=== PATIENT | female | born 1990 | race Caucasian/White ===

== ENCOUNTER → 2017-02-21 | Outpatient (CLI) | payer OTHER ==
[2017-02-21 13:47] LABS: FOLLICLE STIMULATING HORMONE 8.3 mIU/mL; LUTEINIZING HORMONE 9.4 mIU/mL
[2017-02-21 13:51] LABS: ALBUMIN 4.6 GM/DL (3.2-5.2); ALBUMIN/GLOBULIN RATIO 1.28 (1.00-1.93); ALKALINE PHOSPHATASE 55 U/L (45-117); ALT/SGPT 25 U/L (12-78); ANION GAP 9 MEQ/L (8-16); AST/SGOT 8 U/L (7-37); BILIRUBIN,TOTAL 0.7 MG/DL (0.2-1.0); BLOOD UREA NITROGEN 10 MG/DL (7-18); CALCIUM LEVEL 9.9 MG/DL (8.5-10.1); CARBON DIOXIDE LEVEL 29 MEQ/L (21-32); CHLORIDE LEVEL 104 MEQ/L (98-107); CREATININE FOR GFR 0.65 MG/DL (0.55-1.02); GLOMERULAR FILTRATION RATE > 60.0 (>60); GLUCOSE, FASTING 92 MG/DL (70-105); POTASSIUM SERUM 4.5 MEQ/L (3.5-5.1); SODIUM LEVEL 142 MEQ/L (136-145); TOTAL PROTEIN 8.2 GM/DL (6.4-8.2)
== END ==
LOC: M SMT 11:48
PROVIDERS: ATTEND Physician Assistant Medical
DX: E28.2 Polycystic ovarian syndrome (principal); Z13.1 Encounter for screening for diabetes mellitus

== ENCOUNTER → 2017-08-02 | Outpatient (CLI) | payer OTHER ==
[2017-08-02 18:24] LABS: BASO % 0.2 % (0.0-1.0); EOS # 0.1 10^3/uL (0.0-0.50); EOS % 0.6 % (0.0-3.0); HEMATOCRIT 37.5 % (36.0-47.0); HEMOGLOBIN 13.3 g/dl (12.0-15.5); IMMATURE GRANULOCYTE % 0.6 % (0-3.0); LYMPH # 1.8 10^3/uL (1.5-6.5); LYMPH % 19.7 % (24.0-44.0); MEAN CORPUSCULAR HGB CONC 35.5 g/dl (32.0-36.5); MEAN CORPUSCULAR VOLUME 95.9 fl (80.0-96.0); MONO # 0.9 10^3/uL (0.0-0.8); MONO % 9.9 % (0.0-5.0); NEUTROPHILS # 6.1 10^3/uL (1.8-7.7); PLATELET COUNT, AUTOMATED 260 10^3/uL (150-450); RED BLOOD COUNT 3.91 10^6/uL (4.00-5.40); RED CELL DISTRIBUTION WIDTH 11.6 % (11.5-14.5); WHITE BLOOD COUNT 8.9 10^3/uL (4.0-10.0)
[2017-08-03 00:20] LABS: CHLAMYDIA DNA AMPLIFICATION NEGATIVE (NEGATIVE); GC DNA AMPLIFICATION NEGATIVE (NEGATIVE)
[2017-08-03 11:01] LABS: HBsAg Prenatal NEGATIVE (NEGATIVE)
[2017-08-03 11:22] LABS: HEPATITIS C VIRUS ABY INDEX < 0.0 INDEX (<0.8)
[2017-08-03 11:23] LABS: HIV 1&2 SCREEN CENTAUR NEGATIVE (NEGATIVE)
[2017-08-03 12:26] LABS: RUBELLA IgG QUALITATIVE IMMUNE (IMMUNE)
== END ==
LOC: M SMT 14:15
DX: Z34.90 Encounter for supervision of normal pregnancy, unspecified, unspecified trimester (principal)
CPT/HCPCS: 86762

== ENCOUNTER 2017-08-13 20:15 | Emergency (ER) | payer OTHER ==
[2017-08-14] MEDS: ONDANSETRON 4MG/2ML VIAL (J2405) IV (00:30)
[2017-08-14] MEDS: NS 1,000 ML IV (00:31)
[2017-08-14] MEDS: ACETAMINOPHEN TAB 650MG DOSE (2X325MG) PO (00:32)
[2017-08-14 01:18] LABS: BASO % 0.2 % (0.0-1.0); EOS % 0.2 % (0.0-3.0); HEMATOCRIT 29.4 % (36.0-47.0); HEMOGLOBIN 10.6 g/dl (12.0-15.5); IMMATURE GRANULOCYTE % 0.5 % (0-3.0); LYMPH # 0.5 10^3/uL (1.5-6.5); LYMPH % 8.4 % (24.0-44.0); MEAN CORPUSCULAR HEMOGLOBIN 34.4 pg (27.0-33.0); MEAN CORPUSCULAR HGB CONC 36.1 g/dl (32.0-36.5); MEAN CORPUSCULAR VOLUME 95.5 fl (80.0-96.0); MONO # 0.9 10^3/uL (0.0-0.8); MONO % 14.4 % (0.0-5.0); NEUTROPHILS # 4.8 10^3/uL (1.8-7.7); NEUTROPHILS % 76.3 % (36.0-66.0); PLATELET COUNT, AUTOMATED 134 10^3/uL (150-450); RED BLOOD COUNT 3.08 10^6/uL (4.00-5.40); RED CELL DISTRIBUTION WIDTH 11.7 % (11.5-14.5); WHITE BLOOD COUNT 6.3 10^3/uL (4.0-10.0)
[2017-08-14 01:43] LABS: ANION GAP 9 MEQ/L (8-16); BLOOD UREA NITROGEN 4 MG/DL (7-18); CALCIUM LEVEL 7.6 MG/DL (8.5-10.1); CARBON DIOXIDE LEVEL 21 MEQ/L (21-32); CHLORIDE LEVEL 108 MEQ/L (98-107); CREATININE FOR GFR 0.48 MG/DL (0.55-1.30); GLOMERULAR FILTRATION RATE > 60.0 (>60); GLUCOSE, FASTING 84 MG/DL (70-100); POTASSIUM SERUM 3.4 MEQ/L (3.5-5.1); SODIUM LEVEL 138 MEQ/L (136-145)
[2017-08-14 02:16] LABS: KETONE, URINE AUTO RFX 2+ mg/dL (NEGATIVE); MUCUS, URINE RFX SMALL (NEGATIVE); NITRITE, URINE AUTO RFX NEGATIVE (NEGATIVE); RBC, URINE AUTO RFX 3 /HPF (0-3); SPECIFIC GRAVITY UR AUTO RFX 1.004 (1.002-1.035); SQUAM EPITHELIAL CELL UR AURFX 2 /HPF (0-6); WBC, URINE AUTO RFX 2 /HPF (0-3)
[2017-08-14 02:17] LABS: LEUKOCYTE ESTERASE UR AUTO RFX 2+ (NEGATIVE)
== END 2017-08-14 02:26 | disposition home or self-care (01) ==
LOC: M ED 20:15
DX: O99.511 Diseases of the respiratory system complicating pregnancy, first trimester (principal); Z3A.11 11 weeks gestation of pregnancy; Z79.899 Other long term (current) drug therapy
CPT/HCPCS: J2405

== ENCOUNTER → 2017-10-04 | Outpatient (CLI) | payer OTHER | LOC: M RAD 17:37 | DX: Z34.82 Encounter for supervision of other normal pregnancy, second trimester (principal); Z36.89 Encounter for other specified antenatal screening; Z3A.18 18 weeks gestation of pregnancy | CPT/HCPCS: 76811 ==

== ENCOUNTER → 2017-10-15 | Outpatient (CLI) | payer OTHER | LOC: M SMT 15:10 | DX: O28.5 Abnormal chromosomal and genetic finding on antenatal screening of mother (principal) | CPT/HCPCS: 36415 ==

== ENCOUNTER → 2017-11-05 | Outpatient (CLI) | payer OTHER | LOC: M RAD 13:19 | DX: Z34.82 Encounter for supervision of other normal pregnancy, second trimester (principal); Z36.89 Encounter for other specified antenatal screening; Z3A.22 22 weeks gestation of pregnancy | CPT/HCPCS: 76816 ==

== ENCOUNTER → 2017-12-11 | Outpatient (CLI) | payer OTHER ==
[2017-12-11 19:19] LABS: BASO % 0.4 % (0.0-1.0); EOS % 0.4 % (0.0-3.0); HEMATOCRIT 37.9 % (36.0-47.0); HEMOGLOBIN 13.2 g/dl (12.0-15.5); IMMATURE GRANULOCYTE % 2.1 % (0-3.0); LYMPH # 1.3 10^3/uL (1.5-6.5); LYMPH % 13.6 % (24.0-44.0); MEAN CORPUSCULAR HEMOGLOBIN 35.6 pg (27.0-33.0); MEAN CORPUSCULAR HGB CONC 34.8 g/dl (32.0-36.5); MEAN CORPUSCULAR VOLUME 102.2 fl (80.0-96.0); MONO # 0.8 10^3/uL (0.0-0.8); MONO % 8.3 % (0.0-5.0); NEUTROPHILS # 7.2 10^3/uL (1.8-7.7); NEUTROPHILS % 75.2 % (36.0-66.0); PLATELET COUNT, AUTOMATED 206 10^3/uL (150-450); RED BLOOD COUNT 3.71 10^6/uL (4.00-5.40); RED CELL DISTRIBUTION WIDTH 12.8 % (11.5-14.5); WHITE BLOOD COUNT 9.6 10^3/uL (4.0-10.0)
[2017-12-11 19:55] LABS: GLUCOSE CHALLENGE TEST 1 HOUR 127 MG/DL (LESS THAN 140)
== END ==
LOC: M SMT 13:42
DX: Z34.82 Encounter for supervision of other normal pregnancy, second trimester (principal); Z36.89 Encounter for other specified antenatal screening
CPT/HCPCS: 82950

== ENCOUNTER → 2018-02-05 | Outpatient (REF) | payer OTHER | LOC: M LAB REF 17:27 | DX: Z36.89 Encounter for other specified antenatal screening (principal) | CPT/HCPCS: 87186 ==

== ENCOUNTER 2018-03-04 02:03 | Inpatient (IN) | payer OTHER ==
[~2018-03-04] VITALS: Ht 167.6 cm; Wt 77.3 kg
[2018-03-04] VITALS (40 sets, daily range): BP systolic 107–156; BP diastolic 56–93
[~2018-03-04 02:03] MED LIST: PRENTAB7 PO; PROG200C PO; ZITHTAB PO
[2018-03-04] MEDS ORDERED: LACTATED RINGER'S 1000 ML IV STA (03:13)
[2018-03-04] MEDS ORDERED: LR 1,000 ML IV SCH ×2 (03:13→14:18)
[2018-03-04] MEDS ORDERED: PENICILLIN G POTASSIUM IV 5 MU in D5W MINI-BAG PLUS 100 ML IV STA (03:13)
[2018-03-04] MEDS ORDERED: PENICILLIN G POTASSIUM 5 MU VIAL As Ordered ONE (03:13)
[2018-03-04 03:35] LABS: HEMATOCRIT 37.2 % (36.0-47.0); MEAN CORPUSCULAR HEMOGLOBIN 34.9 pg (27.0-33.0); MEAN CORPUSCULAR HGB CONC 34.9 g/dl (32.0-36.5); PLATELET COUNT, AUTOMATED 170 10^3/uL (150-450); RED BLOOD COUNT 3.72 10^6/uL (4.00-5.40); WHITE BLOOD COUNT 11.4 10^3/uL (4.0-10.0)
--- NOTE | 2018-03-04 03:46 | HPE ---
DATE OF ADMISSION: 03/04/2018 A 27-year-old G2 (), para (P) 0-0-1-0 female at 39-6/7 weeks gestation by last menstrual period (LMP) consistent with a nine week ultrasound, with estimated date of confinement (EDC) 03/05/2018 presents with regular contractions every 3 to 4 minutes for the last several hours. The contractions have increased in intensity. She denies vaginal bleeding. COURSE: The patient initiated care at nine weeks gestation on 08/02/2017. Her course was unremarkable. PAST MEDICAL HISTORY: None. PAST SURGICAL HISTORY: None. ALLERGIES: None. SOCIAL HISTORY: The patient is . She denies cigarettes, alcohol or drug use. She lives in [place]. FAMILY HISTORY: Noncontributory. PHYSICAL EXAMINATION: VITAL SIGNS: Blood pressure 120/74, pulse 84. She appears uncomfortable. HEAD AND NECK: Exam normal. LUNGS: Clear. HEART: Regular rate and rhythm. ABDOMEN: Nontender and gravid. heart tones are category 1. STERILE VAGINAL EXAM: 3 cm, 75% effaced, -2 station, vertex. EXTREMITIES: Nontender. LABORATORY DATA: Blood type is B positive, Rubella immune, RPR nonreactive. Hepatitis B and C negative. Group B Streptococcus (GBS) positive on 01/2018. ASSESSMENT: A 27-year-old (G) 2, para (P) 0-0-1-0 female at 39-6/7 weeks gestation presents in labor. PLAN: The patient is admitted on 03/04/2018.
[2018-03-04] MEDS: PENICILLIN G POTASSIUM IV 2.5 MU in APPROPRIATE DILUENT 1 EA IV SCH ×4 (07:30→19:45)
[2018-03-04] MEDS ORDERED: LACTATED RINGER'S 1000 ML IV ONE (14:30)
[2018-03-04] MEDS ORDERED: OXYTOCIN DRIP 30 UNITS in APPROPRIATE DILUENT 1 EA IV SCH (14:30)
[2018-03-04] MEDS ORDERED: EPIDURAL/PCA KEYS XX PRN ×2 (15:15→16:15)
[2018-03-04] MEDS ORDERED: EPIDURAL COMMENT XX SCH ×2 (15:15→16:15)
[2018-03-04] MEDS ORDERED: FENTANYL/ROPIVACAINE/NACL BAG 100 ML EPIDURAL SCH ×2 (15:15→16:15)
[2018-03-04] MEDS ORDERED: REFRIGERATOR IV KEYS XX PRN ×2 (15:15→16:15)
[2018-03-04] MEDS ORDERED: LACTATED RINGER'S 1000 ML IV PRN (16:15)
[2018-03-04] MEDS ORDERED: diphenhydrAMINE INJ 50MG/ML VIAL (J1200) IV PRN (16:15)
[2018-03-04] MEDS ORDERED: NALOXONE INJ 0.4 MG/1 ML VIAL (J2310) IV PRN (16:15)
[2018-03-04] MEDS ORDERED: ePHEDrine SULFATE 25 MG/5 ML(5MG/ML) SYRINGE IV PRN (16:15)
[2018-03-04] MEDS ORDERED: ONDANSETRON 4MG/2ML VIAL (J2405) IV PRN (16:15)
[2018-03-04] MEDS ORDERED: METHYLERGONOVINE MALEATE 0.2 MG TAB PO PRN (22:00)
[2018-03-04] MEDS ORDERED: RHOGAM 300 MCG (1500 IU) INJ (J2790) IM SCH (22:00)
[2018-03-04] MEDS ORDERED: CARBOPROST TROMETHAMINE 250 MCG/ML AMP IM ONE (22:00)
[2018-03-04] MEDS ORDERED: DIBUCAINE 1% OINTMENT 30GM TOP PRN (22:00)
[2018-03-04] MEDS ORDERED: MEASLES,MUMPS,RUBELLA VACCINE INJ (MMR-II) (90707) SC SCH (22:00)
[2018-03-04] MEDS ORDERED: ANUSOL HC CREAM 30GM TOP PRN (22:00)
[2018-03-04] MEDS ORDERED: OXYTOCIN INJ 10 UNITS/ML VIAL (J2590) IM ONE (22:00)
[2018-03-04] MEDS ORDERED: ACETAMINOPHEN 500 MG TAB PO PRN (22:00)
[2018-03-04] MEDS ORDERED: DOCUSATE SODIUM 100 MG CAP PO PRN (22:00)
[2018-03-04] MEDS ORDERED: METHYLERGONOVINE MALEATE 0.2 MG/ML VIAL (J2210) IM ONE (23:00)
--- NOTE | 2018-03-05 06:02 | IPNPDOC ---
Text Note Date of Service The patient was seen on 03/05/18. NOTE Day 1 Status post spontaneous vaginal delivery Subjective Pain well controlled. Lochia decreasing. Voiding spontaneously. Tolerating a regular diet. Ambulating without any assistance. Denies any subjective fever/chills/nausea/headache/visual changes/shortness of breath/chest pain. Breast feeding. Objective Vitals: Normotensive, normal heart rate, afebrile, adequate urine output. Heart: regular, rate, and rhythm. no murmurs/gallops/rubs Lungs: clear to auscultation bilaterally, no wheezes/crackles/rales/ronchi Abd: soft, nontender, nondistended, uterine fundus is 2 cm below umbilicus and firm. Ext: no significant edema, nontender, negative Vianey's bilaterally. Assessment/Plan: day 1. Recovering well. Hemodynamically stable, afebrile, pain control adequate. -Routine care -Discharge to home tomorrow -Routine infectious, fever, pain, and bleeding precautions reviewed VS,Fishbone, I+O VS, Fishbone, I+O Vital Signs Date Time Temp Pulse Resp B/P (MAP) Pulse Ox O2 Delivery O2 Flow Rate FiO2 03/04/18 23:48 99.6 95 18 133/67 (89) I&O- Last 24 Hours up to 6 AM 03/05/18 06:00 Intake Total 2482 ml Output Total 1700 ml Balance 782 ml GME ATTESTATION GME ATTESTATION My faculty preceptor for this patient encounter was physically present during the encounter and was fully available. All aspects of the patient interview, examination, medical decision making process, and medical care plan development were reviewed and approved by the faculty preceptor. The faculty preceptor is aware and concurs with the plan as stated in the body of this note and will attest to such by his/her cosignature. ELAINA DUNCAN DO Mar 05, 2018 06:02
[2018-03-05 06:22] VITALS: BP 107/55
[2018-03-05] MEDS: PRENATAL VITAMINS CHEWABLE TABLET PO SCH (10:19)
[2018-03-05] MEDS: IBUPROFEN 800 MG TAB PO PRN ×2 (10:20→18:19)
[2018-03-05 18:00] VITALS: BP 122/73
[2018-03-06] MEDS: IBUPROFEN 800 MG TAB PO PRN (03:12)
--- NOTE | 2018-03-06 05:23 | IPNPDOC ---
Text Note Date of Service The patient was seen on 03/06/18. NOTE Day 2 Status post spontaneous vaginal delivery Subjective Pain well controlled. Lochia decreasing. Voiding spontaneously. Tolerating a regular diet. Ambulating without any assistance. Denies any subjective fever/chills/nausea/headache/visual changes/shortness of breath/chest pain. Breast feeding. Objective Vitals: Normotensive, normal heart rate, afebrile, adequate urine output. Heart: regular, rate, and rhythm. no murmurs/gallops/rubs Lungs: clear to auscultation bilaterally, no wheezes/crackles/rales/ronchi Abd: soft, nontender, nondistended, uterine fundus is 2 cm below umbilicus and firm. Ext: no significant edema, nontender, negative Vianey's bilaterally. Assessment/Plan: day 2. Recovering well. Hemodynamically stable, afebrile, pain control adequate. -Routine care -Discharge to home today -Routine infectious, fever, pain, and bleeding precautions reviewed GME ATTESTATION My faculty preceptor for this patient encounter was physically present during the encounter and was fully available. All aspects of the patient interview, ex amination, medical decision making process, and medical care plan development were reviewed and approved by the faculty preceptor. The faculty preceptor is aware and concurs with the plan as stated in the body of this note and will attest to such by his/her cosignature. VS,Fishbone, I+O VS, Fishbone, I+O Vital Signs Date Time Temp Pulse Resp B/P (MAP) Pulse Ox O2 Delivery O2 Flow Rate FiO2 03/05/18 18:00 97.4 74 18 122/73 (89) 98 Room Air ELAINA DUNCAN Mar 06, 2018 05:22
[2018-03-06 06:12] VITALS: BP 131/64
[2018-03-06] MEDS: PRENATAL VITAMINS CHEWABLE TABLET PO SCH (08:15)
[2018-03-06] MEDS ORDERED: MAPA500T17 PO (10:32)
[2018-03-06] MEDS ORDERED: IBUP-1114 PO (10:32)
--- NOTE | 2018-03-08 14:33 | DN ---
DATE OF DELIVERY: 03/04/2018 Kenna the 2, para 1-0-1-1 now who was admitted to labor and delivery. She did utilize an epidural for labor coping. She reached full dilation at 2020 hours. She pushed to a normal spontaneous vaginal delivery of a live female infant in OA position with restitution to ROT position at 2117 hours. There is a nuchal cord times one tight that was reduced with somersault maneuver at the time of delivery. The shoulders delivered spontaneously and the corpus immediately followed. The female mouth and nares were bulb suctioned and she was placed on the maternal abdomen crying and active for stimulation and bonding. The cord was clamped times two once pulsations ceased and cut by the father of the baby under my direction. Cord blood was obtained. Spontaneous expulsion with three-vessel cord by Hung mechanism was at 2128 hours. Uterine hemostasis was achieved with Pitocin 10 units IM and Methergine 0.2 mg IM as well as uterine fundal massage. Estimated blood loss 450 mL. Perineum and vagina were inspected and noted to have a left labial laceration. The laceration was repaired to #3-0 Rapide under epidural anesthesia. [place] female weighed 7 pounds 7 ounces, scores of 9 and 9. Mom is going to breastfeed her daughter. At the close of delivery lap counts, needle counts and instrument counts were correct and verified.
== END 2018-03-06 12:00 | disposition home or self-care (01) | DRG 807 ==
LOC: M LDO 02:03 → M LDI 03:07 → M OBS 23:31
PROVIDERS: ADMIT Specialist; ATTEND Advanced Practice Midwife
PROC: 10E0XZZ Delivery of Products of Conception, External Approach (ICD-10-PCS; principal; 2018-03-04)
PROC: 0HQ9XZZ Repair Perineum Skin, External Approach (ICD-10-PCS; 2018-03-04)
DX: O99.824 Streptococcus B carrier state complicating childbirth (principal); Z37.0 Single live birth; Z3A.39 39 weeks gestation of pregnancy; O70.0 First degree perineal laceration during delivery; O69.1XX0 Labor and delivery complicated by cord around neck, with compression, not applicable or unspecified

== ENCOUNTER → 2018-12-02 | Outpatient (REF) | payer OTHER ==
[~2018-12-02] MED LIST changes: +IBUP-1114 PO; +MAPA500T2 PO; +PROG1CAP9 PO; -PROG200C PO
[2018-12-05 14:07] LABS: HPV HYBRID CAPTURE II Negative (Negative)
== END ==
LOC: M LAB REF 20:11
PROVIDERS: ATTEND Advanced Practice Midwife
DX: Z12.4 Encounter for screening for malignant neoplasm of cervix (principal)
CPT/HCPCS: 87624; G0123

== ENCOUNTER → 2019-08-27 | Outpatient (REF) | payer OTHER ==
[2019-08-27 15:20] LABS: HEMATOCRIT 40.4 % (36.0-47.0); HEMOGLOBIN 14.6 g/dl (12.0-15.5); MEAN CORPUSCULAR HEMOGLOBIN 34.4 pg (27.0-33.0); MEAN CORPUSCULAR HGB CONC 36.1 g/dl (32.0-36.5); MEAN CORPUSCULAR VOLUME 95.1 fl (80.0-96.0); PLATELET COUNT, AUTOMATED 256 10^3/uL (150-450); RED BLOOD COUNT 4.25 10^6/uL (4.00-5.40); WHITE BLOOD COUNT 7.9 10^3/uL (4.0-10.0)
[2019-08-27 17:09] LABS: CHLAMYDIA DNA AMPLIFICATION NEGATIVE (NEGATIVE); GC DNA AMPLIFICATION NEGATIVE (NEGATIVE)
[2019-08-27 23:00] LABS: HEPATITIS C VIRUS ABY INDEX 0.2 INDEX (<0.8); HIV 1&2 SCREEN CENTAUR NEGATIVE (NEGATIVE)
== END ==
LOC: M PLALAB 13:48
PROVIDERS: ATTEND Advanced Practice Midwife
DX: Z34.91 Encounter for supervision of normal pregnancy, unspecified, first trimester (principal)
CPT/HCPCS: 36415; 85027; 86762; 86780; 86803; 86850; 86900; 86901; 87088; 87340; 87389; 87491; 87591; G0463

== ENCOUNTER → 2019-11-07 | Outpatient (CLI) | payer OTHER ==
--- NOTE | 2019-12-15 08:02 | REP ---
OBSTETRIC SONOGRAPHY HISTORY: Supervision of for anatomy. FINDINGS: Scanning through the gravid uterus demonstrates a single intrauterine gestation in a breech lie. motion is observed and heart rate is recorded at 143 beats per minute. Amniotic fluid is subjectively normal. Placenta is anterior grade 1 without evidence of previa or abruption. Closed cervical length is measured at 3.9 cm viewed transabdominally. No anomaly is seen. The following anatomic structures are identified and felt to be unremarkable: cranium, cisterna magna, cavum septum, thalami, spine, left-sided stomach, kidneys and bladder, three-vessel cord, abdominal wall cord insertion, face and lips, upper and lower extremities. Four chamber heart and outflow tract views are less than optimally achieved due to position. BIOMETRY CHART: BPD 39 mm 18 weeks 0 days Head Circumference 162 mm 19 weeks 0 days Abdominal Circumference 135 mm 19 weeks 0 days Femur Length 31 mm 19 weeks 4 days Humeral Length 30 mm 20 weeks 0 days Estimated Weight 276 g 7th Percentile IMPRESSION: Viable single intrauterine gestation at 19 weeks 0 days, estimated date of delivery (DARNELL) by sonography 04/02/2020. Four chamber heart and outflow tract view is less than optimally achieved due to position. MTDD
== END ==
LOC: M WHC 10:04
PROVIDERS: ATTEND Advanced Practice Midwife
DX: Z34.82 Encounter for supervision of other normal pregnancy, second trimester (principal)

== ENCOUNTER → 2019-12-19 | Outpatient (CLI) | payer OTHER ==
[2019-12-19 14:10] LABS: BASO % 0.3 % (0.0-1.0); EOS # 0.1 10^3/uL (0.0-0.5); EOS % 0.7 % (0.0-3.0); HEMATOCRIT 35.2 % (36.0-47.0); HEMOGLOBIN 12.1 g/dl (12.0-15.5); LYMPH # 1.2 10^3/uL (1.5-5.0); LYMPH % 15.7 % (24.0-44.0); MEAN CORPUSCULAR HEMOGLOBIN 34.9 pg (27.0-33.0); MEAN CORPUSCULAR HGB CONC 34.4 g/dl (32.0-36.5); MEAN CORPUSCULAR VOLUME 101.4 fl (80.0-96.0); MONO # 0.6 10^3/uL (0.0-0.8); MONO % 7.8 % (0.0-5.0); NEUTROPHILS # 5.4 10^3/uL (1.5-8.5); NEUTROPHILS % 73.2 % (36.0-66.0); PLATELET COUNT, AUTOMATED 207 10^3/uL (150-450); RED BLOOD COUNT 3.47 10^6/uL (4.00-5.40); WHITE BLOOD COUNT 7.4 10^3/uL (4.0-10.0)
== END ==
LOC: M PLALAB 10:12
PROVIDERS: ATTEND Advanced Practice Midwife
DX: Z34.82 Encounter for supervision of other normal pregnancy, second trimester (principal)

== ENCOUNTER → 2019-12-19 | Outpatient (CLI) | payer OTHER ==
--- NOTE | 2019-12-29 12:52 | REP ---
OBSTETRIC SONOGRAPHY HISTORY: Follow-up anatomy, four chamber heart and outflow tracts. FINDINGS: Scanning through the gravid uterus demonstrates a single living intrauterine gestation in a cephalic lie. The placenta is anterior grade 1 without evidence of previa or abruption. Amniotic fluid is subjectively normal. Amniotic fluid index (MADHURI) is normal at 136 beats per minute. Closed cervical length viewed transabdominally is 3.8 cm. There is a tiny echogenic focus adjacent to the gastric fundus of doubtful significance. Four chamber heart and left and right ventricular outflow tract views are felt to be normal. BIOMETRY CHART: BPD 6.0 cm 24 weeks 3 days Head circumference 22.9 cm 25 weeks 0 days Abdominal circumference 20.1 cm 24 weeks 5 days Femur length 4.9 cm 26 weeks 4 days Humeral length 4.3 cm 25 weeks 5 days AC/HC ratio 1.14 Normal Cephalic index 0.71 Normal Estimated weight 809 g, 1 pound 12 ounces 15th percentile for 26 weeks 1 day IMPRESSION: Viable single intrauterine gestation at 25 weeks 2 days by todays composite criteria. Estimated date of delivery (DARNELL) by todays sonography 03/31/2020. heart and outflow tract views were achieved today and are felt to be normal. MTDD
== END ==
LOC: M WHC 10:06
PROVIDERS: ATTEND Advanced Practice Midwife
DX: Z34.92 Encounter for supervision of normal pregnancy, unspecified, second trimester (principal)